=== PATIENT | male | born 1980 | race Caucasian/White ===

== ENCOUNTER 2024-06-25 12:01 | Emergency (ER) | payer SELFPAY ==
[~2024-06-25] VITALS: Ht 167.6 cm; Wt 93.0 kg
[2024-06-25 12:05] VITALS: O2SAT 100
[2024-06-25] MEDS ORDERED: PANT40TA51 MT (12:26)
[2024-06-25] MEDS ORDERED: ONDA4TAB11 PO (12:27)
[2024-06-25] MEDS ORDERED: PSYL1PAC11 PO (12:28)
[2024-06-25] MEDS: FAMOTIDINE 20MG TABLET PO ONE (12:55)
[2024-06-25] MEDS: PANTOPRAZOLE 40MG DR TABLET PO ONE (12:55)
[2024-06-25] MEDS: SUCRALFATE 1G TABLET PO SCH (12:56)
[2024-06-25] MEDS: ACETAMINOPHEN 325MG TABLET PO ONE (12:56)
[2024-06-25 12:58] VITALS: TEMP 98.7
[2024-06-25 13:01] VITALS: BP 158/98; PULSE 76; RESP 18
== END 2024-06-25 13:03 | disposition home or self-care (01) ==
LOC: ER 12:01
DX: K21.9 Gastro-esophageal reflux disease without esophagitis (principal); I10 Essential (primary) hypertension
CPT/HCPCS: 99284